=== PATIENT | female | born 1995 | race Asian ===

== ENCOUNTER 2023-09-24 00:25 | Emergency (ER) | payer BC ==
[~2023-09-24] VITALS: Ht 162.6 cm; Wt 100.0 kg
[2023-09-24 00:33] VITALS: BP 154/80; TEMP 98.4
[2023-09-24] MEDS ORDERED: Ketorolac 30 MG/ML VIAL IV ONE (01:00)
[2023-09-24] MEDS ORDERED: Ketorolac 30 MG/ML VIAL IM ONE (01:15)
[2023-09-24 01:45] VITALS: PULSE 96
== END 2023-09-24 01:47 | disposition home or self-care (01) ==
LOC: COL.ER 00:25
DX: M54.50 Low back pain, unspecified (principal); Z91.040 Latex allergy status; X50.0XXA Overexertion from strenuous movement or load, initial encounter
CPT/HCPCS: J1885; J2360